=== PATIENT | male | born 1945 | race Caucasian/White ===

== ENCOUNTER 2019-09-06 09:18 | Day surgery (SDC) | payer BC ==
--- NOTE | 2019-09-06 06:40 | History and Physical - [facility] ---
CHIEF COMPLAINT/HISTORY OF CHIEF COMPLAINT: This patient presents with a history of intractable lumbar radiculopathy. Due to the failure of therapy, a spinal cord stimulator trial was conducted on 07/20/19 with 75+% pain control. Due to the failure of all therapies and the success of the trial, the patient presents for implantation of a permanent system. PAST MEDICAL HISTORY: Hypertension. PAST SURGICAL HISTORY: None. EMPLOYMENT STATUS: Retired. MEDICATIONS ON ADMISSION: List to be provided. ALLERGIES: None. FAMILY/PSYCHOSOCIAL HISTORY: Social history - Social alcohol and caffeine. Family history - Noncontributory. SYSTEMS REVIEW: The patient is appropriate in no acute distress. The remainder of the systems review is positive for degenerative arthritis. PHYSICAL EXAMINATION: Height is 5'9", weight is 190. No vital signs. HEENT: Within normal limits. LUNGS: Clear. HEART: Rapid and regular. ABDOMEN: Nontender. MUSCULOSKELETAL: Examination of the musculoskeletal system shows diffuse tenderness throughout the lumbar spine. Range of motion produces pain to both legs, some more left than right. There are currently no motor or sensory abnormalities. Ambulation - No assistive device utilized. NEUROLOGIC: Cranial nerves are intact. IMPRESSION: LUMBAR RADICULOPATHY, ICD-10 CODE M54.16 AND M54.17. PLAN: The patient is here for permanent spinal cord stimulator implant after a successful trial and the failure of other therapies. The procedure will be considered outpatient, although an overnight stay will be evaluated. JOB NUMBER: [id number] MTDD
[~2019-09-06 09:18] MED LIST: ACETAMINOPHEN 1,000 MG/100 ML BTL IVPB ONE; CEFAZOLIN 2 Gram 2 GM/50 ML BAG IVPB ONE; FAMOTIDINE 20MG TABLET PO ONE; MECLIZINE 25 MG TABLET PO ONE; METOCLOPRAMIDE 10 MG TABLET PO ONE
[2019-09-06] MEDS ORDERED: MIDAZOLAM HCL 2MG/2ML VIAL IV ONE (09:19)
[2019-09-06] MEDS ORDERED: PROPOFOL 10 MG/ML VIAL IV ONE (09:19)
[2019-09-06] MEDS ORDERED: FENTANYL PF 100MCG/2ML VIAL IV ONE (09:19)
[2019-09-06] MEDS ORDERED: LIDOCAINE 2% MDV (20MG/ML) 20ML VIAL IV ONE (09:19)
[2019-09-06] MEDS ORDERED: RINGERS SOLUTION,LACTATED 1,000 ML IV ONE ×2 (10:15→12:15)
[2019-09-06] MEDS ORDERED: LIDOCAINE 1% W/EPI 1:100,000 MDV 20 ML VIAL SQ ONE ×2 (11:55)
[2019-09-06] MEDS ORDERED: BUPIVACAINE 0.5% W/EPI MPF 30 ML VIAL SQ ONE ×2 (11:55)
--- NOTE | 2019-09-06 14:09 | Operative Note - [facility] ---
DATE OF SURGERY: 09/06/2019 PREOPERATIVE DIAGNOSIS: LUMBAR RADICULOPATHY, ICD-10 CODE M54.16 AND M54.17. OPERATION: 1. FLUOROSCOPICALLY GUIDED EPIDURAL ACCESS LEFT T11-T12, PLACEMENT OF SPINAL CORD STIMULATOR LEAD 1 [employer] 16, 6-ELECTRODES POSITIONED LEFT T7. 2. FLUOROSCOPICALLY GUIDED EPIDURAL ACCESS LEFT T12-L1, PLACEMENT OF SPINAL CORD STIMULATOR LEAD 2 [employer] 16, 6-ELECTRODES POSITIONED RIGHT T7. 3. COMPLEX PROGRAMMING OF LEAD 1 OVER TWENTY MINUTES FOLLOWED BY COMPLEX PROGRAMMING LEAD 2 OVER TWENTY MINUTES. 4. INCISION, SUBCUTANEOUS DISSECTION, AND ANCHORING OF LEAD 1 AND LEAD 2 TO THE SUPRASPINOUS FASCIA WITH A [employer] LOCKING ANCHOR NONABSORBABLE SUTURE. 5. INCISION, SUBCUTANEOUS DISSECTION, AND CREATION OF SUBCUTANEOUS POUCH AT LEFT POSTERIOR GLUTEAL MARGIN ABOVE BELT LINE FOR GENERATOR [employer] PROGRAMMABLE RECHARGEABLE WAVEWRITER. 6. TUNNELLING BETWEEN POUCHES, PLACEMENT OF EXTERNAL PORTION OF LEAD 1 AND LEAD 2 INTO GENERATOR POUCH, EACH LEAD INTERFACED WITH GENERATOR. 7. PLACEMENT OF GENERATOR POUCH, PLACEMENT OF LEADS INTO POUCH, CLOSURE OF BOTH INCISIONS STRATAFIX SUTURE 2-0 FASCIA AND 3-0 SKIN. DERMABOND CLOSURE. 8. COMPLEX RECOVERY ROOM PROGRAMMING INTERNAL GENERATOR HOME USE TWO STIMULATORS RECOVERY ROOM TWENTY MINUTES. SURGEON: Luis Felipe Lan D.O. ANESTHESIA: Local sedation. ANESTHESIA PROVIDER: DANIELLE Paul CRNA INDICATION: This patient presents with a history of intractable lumbar radiculopathy. Due to the failure of therapies a spinal cord stimulator trial was conducted with 75-85% pain control. Due to the failure of therapy and the success of the trial, the patient presents for implantation of a permanent system. PROCEDURE: Intravenous line, vital sign monitoring, IV sedation, prepped and draped, sterile technique. With the patient prone, sterile prep, and sterile technique, the epidural interspace left of midline at T12-L1 and T11-T12 were marked, infiltrated, separate curved Epimed needles with loss of resistance into the space, atraumatic. No blood. No CSF. At T11-T12 spinal cord stimulator Lead 1 [employer] 16, 6-electrodes positioned left T7. The access at T12-L1 spinal cord stimulator Lead 2 [employer] 16, 6- electrodes positioned right at T7. Complex programming of Lead 1 over twenty minutes followed by complex programming of Lead 2 over twenty minutes resulting in complete pattern of stimulation across the back and into the legs. The patient is indicating that we hit all of the areas of the pain. He was given the option at that point to implant, continue to program, or remove and he opted to implant. Questions were repeated with the same response. He was re-sedated. The skin above and below the needles were infiltrated with local, an incision was made, and subcutaneous dissection was conducted to the supraspinous fascia. The needles were removed and each lead was anchored to the deep fascia with a nonabsorbable suture and an anchoring device from [employer]. At the left flank or posterior gluteal margin at a site picked by the patient for the generator above the belt line the skin was infiltrated, incision made, and subcutaneous dissection was conducted to form a pouch of suitable size and depth for the generator, [employer] programmable rechargeable Wavewriter. The skin infiltrated, the incision made and subcutaneous dissection was conducted to form a pouch of suitable size and depth. A tunnelling tool was used to carry the leads into the generator pouch and then each lead was interfaced with the generator. Antibiotic irrigation, Bovie for hemostasis. The generator was placed in the pouch, the leads were placed in their own pouch and then both incisions were closed using Stratafix suture 2-0 fascia and 3-0 skin. Dermabond closure to approximate the edges of both wounds. He was transported to the Recovery Room stable. There are no side effects from the procedure and sedation. When fully awake and alert in the Recovery Room, complex programming of the internal generator performed over twenty minutes reestablishing stimulation and pain control to all of the appropriate areas. He was requesting discharge. DISCHARGE INSTRUCTIONS: 1. The sites are to remain clean and dry. No showering or bathing in any way that would disrupt dressings. If it happens contact the clinic. 2. Standard medications will be resumed including the antibiotic Levaquin 500 mg a day for fourteen days. 3. The office will contact the patient in 12-24 hours to set up a time in 7-10 days for us to evaluate the sites, until then he is to keep his activities low. All other instructions were provided. The numbers to contact if problems given. He will be discharged by his request. JOB NUMBER: [id number] [facility]
--- NOTE | 2019-09-06 20:57 | RADIOLOGY REPORT ---
EXAMINATION: Thoracic Spine Single View EXAM DATE: 09/06/2019 12:41 PM TECHNIQUE: Frontal view INDICATION: SCS IMPLANT, LEADS GENERATOR COMPARISON: None ENCOUNTER: Initial IMPRESSION: Single view of the thoracic spine for lead placement. There are 2 spinal stimulator leads, the tip of one projects at the T6-7 disc space, and the other projects over the T7 vertebral body. Alignment of the thoracic spine is normal on AP view with multilevel degenerative disc disease. Dictated by: Bora Morales MD on 09/06/2019 8:55 PM. .
== END 2019-09-06 13:16 | disposition home or self-care (01) ==
LOC: SUR 09:18
PROVIDERS: ATTEND Pain Medicine Interventional Pain Medicine
DX: M54.16 Radiculopathy, lumbar region (principal); M54.17 Radiculopathy, lumbosacral region; I10 Essential (primary) hypertension; E78.00 Pure hypercholesterolemia, unspecified; Z79.4 Long term (current) use of insulin; Z95.5 Presence of coronary angioplasty implant and graft
CPT/HCPCS: 63650; 63685; 01936; 95972; 72020; C1883; C1820; J3010; J0690; J7120